=== PATIENT | female | born 1935 | race Caucasian/White ===

== ENCOUNTER 2019-01-19 11:29 | Emergency (ER) | payer OTHER, MEDICARE ==
[2019-01-19] MEDS ORDERED: ONDANSETRON HCL INJ/PF 4 MG/2 ML SDV IV ONE (11:50)
[2019-01-19] MEDS ORDERED: IPRATROPIUM/ALBUTEROL 0.5-2.5 MG/3 ML AMPUL NEB ONE (11:51)
--- NOTE | 2019-01-19 11:52 | ER Document Report ---
ED Medical Screen (RME) - General Chief Complaint: Vomiting/Diarrhea Stated Complaint: VOMITING/DIARRHEA Time Seen by Provider: 01/19/19 11:46 Primary Care Provider: FLOR MASON [Primary Care Provider] - Follow up as needed Notes: Patient presents complaining of nausea vomiting diarrhea for the past 4 days. Patient also reports occasional difficulty breathing. No chest pain. Patient reports occasional abdominal pain when she has to have a bowel movement. 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 A comprehensive ED assessment and evaluation of the patient, analysis of test results and completion of the medical decision making process will be conducted by additional ED providers. TRAVEL OUTSIDE OF THE [place] IN LAST 30 DAYS: No - Related Data Allergies/Adverse Reactions: Penicillins Allergy (Verified 01/19/19 11:41) Past Medical History - Social History Chew tobacco use (# tins/day): No Frequency of alcohol use: None Drug Abuse: None Physical Exam - Vital signs Vitals: Temp Pulse Resp BP Pulse Ox 97.6 F 103 H 28 H 132/78 H 92 01/19/19 11:36 01/19/19 11:36 01/19/19 11:36 01/19/19 11:36 01/19/19 11:36 - Respiratory Respiratory status: Tachypnea Breath sounds: Wheezing Course - Vital Signs Vital signs: Temp Pulse Resp BP Pulse Ox 97.6 F 103 H 28 H 132/78 H 92 01/19/19 11:36 01/19/19 11:36 01/19/19 11:36 01/19/19 11:36 01/19/19 11:36 Doctor's Discharge - Discharge Referrals: FLOR MASON [Primary Care Provider] - Follow up as needed
[2019-01-19 12:43] LABS: ABSOLUTE BASOPHILS # (AUTO) 0.1 10^3/uL (0.0-0.2); ABSOLUTE EOSINOPHILS # (AUTO) 0.2 10^3/uL (0.0-0.6); ABSOLUTE LYMPHOCYTES (AUTO) 1.8 10^3/uL (0.5-4.7); ABSOLUTE MONOCYTES (AUTO) 0.4 10^3/uL (0.1-1.4); ABSOLUTE NEUT (AUTO) 3.3 10^3/uL (1.7-8.2); BASOPHILS % (AUTO) 1.1 % (0-2); EOSINOPHILS % (AUTO) 3.7 % (0-6); HEMATOCRIT 36.9 % (36.0-47.0); LYMPHOCYTES % (AUTO) 31.6 % (13-45); MEAN CORPUSCULAR HEMOGLOBIN 27.1 pg (27.0-33.4); MEAN CORPUSCULAR HGB CONC 32.5 g/dL (32.0-36.0); MEAN CORPUSCULAR VOLUME 84 fl (80-97); MONOCYTES % (AUTO) 7.4 % (3-13); PLATELET COUNT 230 10^3/uL (150-450); RED BLOOD COUNT 4.42 10^6/uL (3.72-5.28); RED CELL DISTRIBUTION WIDTH 13.6 % (11.5-14.0); SEGMENTED NEUTROPHILS % (AUTO) 56.2 % (42-78); TOTAL CELLS COUNTED % (AUTO) 100 %; WHITE BLOOD COUNT 5.8 10^3/uL (4.0-10.5)
[2019-01-19 13:03] LABS: ALBUMIN 3.6 g/dL (3.5-5.0); ALKALINE PHOSPHATASE 73 U/L (38-126); ANION GAP 8 (5-19); ASPARTATE AMINO TRANSFERASE 38 U/L (14-36); BILIRUBIN,DIRECT 0.2 mg/dL (0.0-0.4); BILIRUBIN,TOTAL 0.6 mg/dL (0.2-1.3); BLOOD UREA NITROGEN 22 mg/dL (7-20); CALCIUM 9.3 mg/dL (8.4-10.2); CARBON DIOXIDE 28 mmol/L (22-30); CHLORIDE 100 mmol/L (98-107); GLUCOSE 221 mg/dL (75-110); POTASSIUM 3.7 mmol/L (3.6-5.0); TOTAL PROTEIN 6.4 g/dL (6.3-8.2)
[2019-01-19 13:13] LABS: NT PRO BNP 120 pg/mL (<450)
[2019-01-19 13:16] LABS: TROPONIN I < 0.012 ng/mL
--- NOTE | 2019-01-19 13:17 | RADIOLOGY REPORT (SQ) ---
EXAM DESCRIPTION: CHEST 2 VIEWS COMPLETED DATE/TIME: 01/19/2019 1:00 pm REASON FOR STUDY: sob COMPARISON: None. EXAM PARAMETERS: NUMBER OF VIEWS: two views TECHNIQUE: Digital Frontal and Lateral radiographic views of the chest acquired. RADIATION DOSE: NA LIMITATIONS: none FINDINGS: LUNGS AND PLEURA: Volume loss in the right lung with apical pleural thickening. Probably chronic. Left lung clear. MEDIASTINUM AND HILAR STRUCTURES: Elevated right hemidiaphragm. HEART AND VASCULAR STRUCTURES: Heart normal size. No evidence for failure. BONES: Partial resection of the right 5th rib. HARDWARE: None in the chest. OTHER: No other significant finding. IMPRESSION: Probable chronic changes in the right lung. Left lung is clear. TECHNICAL DOCUMENTATION: JOB ID: [id number] [email or web address] All Rights Reserved Reading location - IP/workstation name: [email or web address]
[2019-01-19 13:49] LABS: APPEARANCE,URINE SLIGHTLY-CLOUDY; BILIRUBIN,URINE NEGATIVE (NEGATIVE); COLOR,URINE YELLOW; GLUCOSE, URINE 150 mg/dL (NEGATIVE); KETONES,URINE NEGATIVE (NEGATIVE); LEUKOCYTE ESTERASE,URINE NEGATIVE (NEGATIVE); NITRITE,URINE NEGATIVE (NEGATIVE); PROTEIN,URINE NEGATIVE (NEGATIVE); URINE SPECIFIC GRAVITY 1.018; UROBILINOGEN,URINE NEGATIVE mg/dL (<2.0)
--- NOTE | 2019-01-19 15:23 | ER Document Report ---
ED General - General Chief Complaint: Vomiting/Diarrhea Stated Complaint: VOMITING/DIARRHEA Time Seen by Provider: 01/19/19 11:46 Primary Care Provider: FLOR MASON [NO LOCAL MD] - Follow up as needed TRAVEL OUTSIDE OF THE [place] IN LAST 30 DAYS: No - HPI Notes: Patient is an 83-year-old female who presents to the emergency department for evaluation. States for the last several days she has been coughing. She started feeling poorly a few days ago. She developed nausea, then had 3 episodes of emesis over the last several days. She then developed diarrhea. She states originally she had a cough as well. She denies any significant shortness of breath. She is had some chills but is unaware of any sage fevers. She saw her physician on Sunday. He put her on Cipro for potential urinary tract infection, but she does not really have any urinary symptoms. She states she really has not been taking Cipro as a result. - Related Data Allergies/Adverse Reactions: Penicillins Allergy (Verified 01/19/19 11:41) Past Medical History - General Information source: Patient - Social History Smoking Status: Never Smoker Chew tobacco use (# tins/day): No Frequency of alcohol use: None Drug Abuse: None Family History: Reviewed & Not Pertinent Patient has suicidal ideation: No Patient has homicidal ideation: No - Past Medical History Cardiac Medical History: Reports: Hx Congestive Heart Failure, Hx Hypercholesterolemia, Hx Hypertension Neurological Medical History: Reports: Other - History of TIA Endocrine Medical History: Reports: Hx Diabetes Mellitus Type 2 Review of Systems - Review of Systems Constitutional: See HPI EENT: No symptoms reported Cardiovascular: No symptoms reported Respiratory: See HPI Gastrointestinal: See HPI Genitourinary: No symptoms reported Musculoskeletal: No symptoms reported Skin: No symptoms reported Neurological/Psychological: No symptoms reported Physical Exam - Vital signs Vitals: Temp Pulse Resp BP Pulse Ox 97.6 F 103 H 28 H 132/78 H 92 01/19/19 11:36 01/19/19 11:36 01/19/19 11:36 01/19/19 11:36 01/19/19 11:36 - Notes Notes: Vital signs reviewed, please refer to chart. Head is normocephalic, atraumatic. Pupils equal round, reactive to light. Neck is supple without meningismus. Heart is regular rate and rhythm. Lungs are clear to auscultation bilaterally. Abdomen is soft, nontender, normoactive bowel sounds throughout. Extremities without cyanosis, clubbing. Posterior calves are nontender. Peripheral pulses are equal. Skin is warm and dry. Patient is awake, alert, neurological exam is nonfocal. Course - Re-evaluation Re-evalutation: 01/19/19 15:27 Patient presents emergency department for evaluation. She said chills, cough, vomiting, diarrhea. Laboratory investigations failed to reveal any significant abnormality. No signs of UTI. No signs of significant dehydration. She was feeling markedly improved after initial treatment. On the monitor her vital signs remained unremarkable. I did consider ordering an influenza, but the patient is outside the treatment window. She is not febrile here. It was really only academic to order this test, and will defer this at this time. Otherwise I will send the patient home with some Zofran. She is to stay well- hydrated. Follow-up with her primary care physician this week. I agree with deferring Cipro, as she does not have any signs of urinary tract infection at this time. She is to return to the ED with worsening or new concerning symptoms of any sort. - Vital Signs Vital signs: Temp Pulse Resp BP Pulse Ox 97.6 F 103 H 30 H 132/50 H 99 01/19/19 11:36 01/19/19 11:36 01/19/19 15:01 01/19/19 15:01 01/19/19 15:01 - Laboratory Result Diagrams: 01/19/19 12:33 01/19/19 12:33 Laboratory results interpreted by me: 01/19/19 01/19/19 12:33 12:41 Sodium 136.4 L BUN 22 H Est GFR ( Amer) 52 L Est GFR (MDRD) Non-Af 43 L Glucose 221 H AST 38 H Urine Glucose (UA) 150 H - Diagnostic Test Radiology reviewed: Image reviewed, Reports reviewed Radiology results interpreted by me: 01/19/19 15:28 Chest X-Ray 01/19/19 11:50 IMPRESSION: Probable chronic changes in the right lung. Left lung is clear. Discharge - Discharge Clinical Impression: Cough, Viral syndrome Nausea and vomiting Qualifiers: Vomiting Intractability: non-intractable Diarrhea Qualifiers: Diarrhea type: presumed infectious Qualified Code(s): R19.7 - Diarrhea, unspecified Condition: Stable Disposition: HOME, SELF-CARE Instructions: Diarrhea, Nonspecific ([facility]), Viral Syndrome ([facility]), Vomiting ([facility]) Additional Instructions: Stay hydrated with small, frequent sips of fluids. Use Zofran as needed for severe nausea. Follow-up with your primary care physician this week. Return to the emergency department with worsening or new concerning symptoms. Referrals: LOCALMD,NO [NO LOCAL MD] - Follow up as needed
[2019-01-19] MEDS ORDERED: ONDANSETRON ODT 4 MG TAB (6 TAB/ER DISP) PO PRN (15:30)
[2019-01-19 15:36] VITALS: BP 132/50
== END 2019-01-19 15:45 | disposition home or self-care (01) ==
LOC: ER 11:29
DX: R05 Cough (principal); B34.9 Viral infection, unspecified; R11.2 Nausea with vomiting, unspecified; R19.7 Diarrhea, unspecified
CPT/HCPCS: 36415; 83690; 85025; 80053; 81001; 84484; 83880; 71046; J2405; J7620; 94640; 96374; 99284